=== PATIENT | female | born 1955 | race Caucasian/White ===

== ENCOUNTER → 2020-07-23 14:52 | Outpatient (CLI) | payer MEDICARE, SELFPAY ==
--- NOTE | 2020-07-23 18:23 | DI.NM.S_ITS ---
DATE OF SERVICE: 07/23/2020 PROCEDURE: Exercise stress test. INDICATION: Paroxysmal SVT. CARDIAC STRESS: The patient underwent exercise stress test under the supervision of an attending staff. The patient walked on Glen protocol for 5 minutes and 24 seconds, achieved 111 percent of target heart rate, 7 METs of workload. Baseline blood pressure 140/90. Peak blood pressure 230/110, suggestive of hypertensive blood pressure response. The patient felt fatigue. Baseline EKG revealed sinus rhythm with mild sinus bradycardia and some repolarization changes and flattening of ST-segment in the inferolateral leads. During exercise, there was some nonspecific, less than [address] depression, in inferolateral leads without any convincing ischemic changes. There were no significant arrhythmias seen. CONCLUSION: Exercise stress test is negative for definite inducible ischemia. There were some nonspecific electrocardiographic changes seen. Hypertensive blood pressure response. The peak blood pressure was 230/110. No significant arrhythmias seen. Overall, this is a low-risk exercise stress test. Mya Mejia - MORENA/jim/armani doc#: [id number]/job#: [id number] dd: 07/23/2020 17:40:00 dt: 07/23/2020 18:04:00 DICTATING MD/COPIES TO: Olga Viera MD COPIES MNE: DEREK;
== END ==
PROVIDERS: PCP Family Medicine; Referring Provider Family Medicine; Visit Provider Family Medicine
DX: I47.1 Supraventricular tachycardia (principal)
CPT/HCPCS: 93016; 93017

== ENCOUNTER → 2021-02-16 12:43 | Outpatient (CLI) | payer MEDICARE, SELFPAY ==
--- NOTE | 2021-02-16 | DI.MRI.S_ITS ---
PROCEDURE: MR SHOULDER LT WO CON INDICATIONS: Pain in left shoulder TECHNIQUE: Noncontrast oblique coronal T2 fast spin echo with fat saturation, oblique sagittal T1 spin echo and T2 fast spin echo with fat saturation, axial T1 spin echo and T2 fast spin echo with fat saturation through the shoulder. COMPARISON: None. FINDINGS: Rotator cuff: Supraspinatus tendinopathy with low-grade bursal surface fraying and thickened appearance. There is also mild infraspinatus tendinopathy. The teres minor appears intact. Subscapularis tendon appears intact. No atrophy of the rotator cuff musculature although mild fatty infiltration of the supraspinatus and infraspinatus. Bones and bursae: No bone marrow contusions or fractures. Moderate acromioclavicular joint degeneration. Acromion demonstrates conventional anatomy, without an os acromiale. Eaxr-jn-[id number] subacromial-subdeltoid bursitis. Capsule and soft tissues: Labrum: Mild amorphous degenerative signal changes in the labrum which is probably age-appropriate.. Glenohumeral ligaments: Low-grade sprain of the anterior band of the inferior glenohumeral ligament without complete rupture or avulsion fracture. Biceps tendon: Long head of the biceps tendon intact. Rotator interval: Normal signal intensity. Coracohumeral ligament: Intact. IMPRESSION: Rotator cuff tendinopathy with low-grade bursal surface fraying as above. Vqtq-ny-[id number] subacromial-subdeltoid bursitis. Low-grade sprain of the inferior glenohumeral ligament. Dictated by: Kenyon Sarmiento M.D. on 02/16/2021 at 17:11 Approved by: Kenyon Sarmiento M.D. on 02/16/2021 at 17:17
== END ==
PROVIDERS: PCP Family Medicine; Referring Provider Family Medicine; Visit Provider Family Medicine
DX: M25.512 Pain in left shoulder (principal); M75.52 Bursitis of left shoulder; S43.492A Other sprain of left shoulder joint, initial encounter; G89.29 Other chronic pain
CPT/HCPCS: 73221